=== PATIENT | female | born 1970 | race Caucasian/White ===

== ENCOUNTER 2016-10-18 16:46 | Emergency (ER) | payer OTHER ==
[2016-10-18 17:03] VITALS: TEMP 97.7; BMI 34.7
--- NOTE | 2016-10-18 17:43 | PDOC ---
History of Present Illness - General Chief Complaint: Pain, Acute Stated Complaint: LOWER ABDOMINAL CRAMPING 1ST DAY OF MENSTRUAL C Time Seen by Provider: 10/18/16 17:40 History Source: Patient Exam Limitations: No Limitations - History of Present Illness Initial Comments: 10/18/16 18:30 This patient is a 46-year-old female with a history of bipolar disorder, GERD who presents emergency department with a complaint of severe lower abdominal pain on this her first day of her menstruation. Patient states for the past 6-8 months she has had irregular periods, and states often she has 2 periods per month. This month was the first month that there were 28 days between her periods Patient states she has had clotting, severe cramping. She is ALLERGIC to narcotic medications, has been taking Pamprin and Motrin with little relief. Patient states she has had 7 children, and has not had pain this severe. She reports that her pain is 10/10, describes as cramping, located in the lower abdomen. She does not have a ob/gyn nurse and has not followed up for this problem. PMH: Bipolar, GERD PSH: C section Meds: please see MAR ALL: Hydromorphone, morphine, PCN Social: Denies drug use GENERAL/CONSTITUTIONAL: No: fever, chills, weakness, loss of appetite. CARDIOVASCULAR: Yes: lightheadedness No: chest pain, palpitations, syncope RESPIRATORY: No: cough, shortness of breath, wheezing GASTROINTESTINAL: Yes: abdominal cramping No: nausea, vomiting, diarrhea, abdominal cramping, rectal bleeding, constipation. GENITOURINARY: No: dysuria, hematuria, frequency, urgency, flank pain. MUSCULOSKELETAL: No: back pain, neck pain, joint pain SKIN: No: lesions, pallor, rash or easy bruising. NEUROLOGIC: No: headache, vertigo, paresthesias, weakness ENDOCRINE: No: unexplained weight gain or loss HEMATOLOGIC/LYMPHATIC: No: anemia, easy bleeding, swelling nodes. GENERAL: The patient is in no acute distress. HEAD: Normal with no signs of trauma. EYES: PERRLA, EOMI, sclera anicteric, conjunctiva clear. ENT: Ears normal, nares patent, oropharynx clear without exudates. Moist mucous membranes. NECK: Normal range of motion, supple without lymphadenopathy, JVD, or masses. LUNGS: Breath sounds equal, clear to auscultation bilaterally. No wheezes, and no crackles. HEART:Regular rate and rhythm, normal S1 and S2 without murmur, rub or gallop. ABDOMEN: Soft, lower abdominal tenderness No guarding, no rebound. No masses palpable. EXTREMITIES: Normal range of motion, no edema. No clubbing or cyanosis. No erythema, or tenderness. NEUROLOGICAL: Cranial nerves II through XII grossly intact. Normal speech. No focal neurological deficits. MUSCULOSKELETAL: Back non-tender to palpation, no CVA tenderness SKIN: Warm, Dry, normal turgor, no rashes or lesions noted. Past History - Past Medical History Allergies/Adverse Reactions: Allergies Allergy/AdvReac Type Severity Reaction Status Date / Time hydromorphone HCl Allergy Verified 10/18/16 16:48 [From Dilaudid] morphine Allergy Verified 10/18/16 16:49 Penicillins Allergy Verified 10/18/16 16:48 Home Medications: Ambulatory Orders Hydroxyzine HCl [Atarax -] 100 mg PO HS 10/18/16 GI Disorders: Yes (GERD) Psychiatric Problems: Yes (bipolar) Suicide Attempt (Hx): No - Reproductive History Is Patient Now?: No (#): 13 Para: 6 Therapeutic (s) & number: Yes (1) Tubal Ligation: Yes Spontaneous : 6 - Immunization History Td Vaccination: No Immunization Up to Date: Yes - Psycho/Social/Smoking Cessation Hx Anxiety: Yes (PT H/O BIPOLAR) Suicidal Ideation: Yes (2006) Smoking History: Current every day smoker Have you smoked in the past 12 months: Yes Number of Cigarettes Smoked Daily: 20 Information on smoking cessation initiated: Yes 'Breaking Loose' booklet given: 10/18/16 Hx Alcohol Use: Yes (3-4 BEERS EVERY 3-4 DAYS) Drug/Substance Use Hx: No Substance Use Type: Alcohol *Physical Exam - Vital Signs Last Vital Signs Temp Pulse Resp BP Pulse Ox 97.7 F 92 H 20 155/86 10/18/16 16:47 10/18/16 16:47 10/18/16 16:47 10/18/16 16:47 ED Treatment Course - LABORATORY CBC & Chemistry Diagram: 10/18/16 17:52 Medical Decision Making - Medical Decision Making 10/18/16 18:30 Laboratory Tests 10/18/16 10/18/16 17:52 17:52 WBC 9.2 Hgb 11.7 D Hct 35.7 D Plt Count 508 H Serum , Qual Negative 10/18/16 18:49 Will send to transvaginal US to eval for torsion or necrotic fibroid Will give Tylenol IV for pain (pt can not take narcotics, would like to hold on NSAIDS) *DC/Admit/Observation/Transfer Diagnosis at time of Disposition: Menorrhagia, premenopausal - Discharge Dispostion Disposition: HOME Condition at time of disposition: Stable - Patient Instructions Printed Discharge Instructions: Heavy Menstrual Bleeding, Smoking Cessation Additional Instructions: Follow-up with speech coach within the next 3-4 days as discussed Return to ER if you have lightheadedness/severe, persistent bleeding
[2016-10-18] MEDS ORDERED: ACETAMINOPHEN 1000 MG/100 ML VIAL (NON FORMULARY) IVPB ONE (17:48)
[2016-10-18] MEDS ORDERED: ACETAMINOPHEN INJECTION 100 ML IVPB ONE (17:55)
[2016-10-18 17:59] LABS: BASOPHIL 1.8 % (0-2.0); EOSINOPHIL 1.1 % (0-4.5); MCH 26.7 pg (25.7-33.7); MCHC 32.8 g/dl (32.0-36.0); MEAN CELL VOLUME 81.5 fl (80-96); MEAN PLT VOLUME 6.8 fl (7.5-11.1); NEUTROPHILS 70.1 % (42.8-82.8); PLATELET COUNT 508 K/MM3 (134-434); RDW 16.3 % (11.6-15.6); WHITE BLOOD COUNT 9.2 K/mm3 (4.0-10.8)
[2016-10-18 18:58] VITALS: BP 148/84; PULSE 60
--- NOTE | 2016-10-18 19:46 | PDOC ---
*Physical Exam - Vital Signs Last Vital Signs Temp Pulse Resp BP Pulse Ox 97.7 F 60 16 148/84 10/18/16 16:47 10/18/16 18:56 10/18/16 18:56 10/18/16 18:56 ED Treatment Course - LABORATORY CBC & Chemistry Diagram: 10/18/16 17:52 - ADDITIONAL ORDERS Additional order review: Laboratory Results 10/18/16 17:52 Serum , Qual Negative 10/18/16 17:52 RBC 4.38 MCV 81.5 MCHC 32.8 RDW 16.3 H MPV 6.8 L Neutrophils % 70.1 Lymphocytes % 23.3 Monocytes % 3.7 L Eosinophils % 1.1 Basophils % 1.8 - Medications Given in the ED: ED Medications Discontinued Medications Generic Name Dose Route Start Last Admin Trade Name Freq PRN Reason Stop Dose Admin Acetaminophen 1,000 mg 10/18/16 17:48 10/18/16 18:00 Ofirmev Injection - IVPB 10/18/16 17:49 1,000 mg ONCE ONE Administration Progress Note - Progress Note Progress Note: Care of this patient received from Dr. Michelle. Pelvic ultrasound is normal without evidence of uterine leiomyoma or other masses. Adnexa are normal as are ovaries without evidence of torsion. Also, CBC shows no evidence of anemia currently. Results discussed with the patient. She will consult with her dry wall nailer in the near future. Referral information was given for general dry wall nailer associated with [facility]. Patient should return to the emergency room if she has persistent, severe vaginal bleeding or if she develops lightheadedness/weakness *DC/Admit/Observation/Transfer Diagnosis at time of Disposition: Menorrhagia, premenopausal - Discharge Dispostion Disposition: HOME Condition at time of disposition: Stable - Patient Instructions Printed Discharge Instructions: Heavy Menstrual Bleeding, Smoking Cessation Additional Instructions: Follow-up with dry wall nailer within the next 3-4 days as discussed Return to ER if you have lightheadedness/severe, persistent bleeding
== END 2016-10-18 20:01 | disposition home or self-care (01) ==
LOC: FER 16:46
PROC: 3E033NZ Introduction of Analgesics, Hypnotics, Sedatives into Peripheral Vein, Percutaneous Approach (ICD-10-PCS; principal; 2016-10-18)
DX: N92.4 Excessive bleeding in the premenopausal period (principal); F17.210 Nicotine dependence, cigarettes, uncomplicated; F31.9 Bipolar disorder, unspecified; K21.9 Gastro-esophageal reflux disease without esophagitis
CPT/HCPCS: 36415; 76830-TC; 84703; 85025; 96374; 99283-25